=== PATIENT | female | born 1990 | race Two or more races ===

== ENCOUNTER 2019-09-02 16:14 | Day surgery (SDC) | payer SELFPAY ==
[2019-09-02] MEDS ORDERED: Sodium Chloride 0.9% 1,000 ML IV ONE (16:19)
--- NOTE | 2019-09-02 16:40 | EDM.PDOC ---
ED HPI GENERAL MEDICAL PROBLEM - General Chief Complaint: Abdominal Pain Stated Complaint: ABDOMINAL PAIN Time Seen by Provider: 09/02/19 16:17 Source of Information: Reports: Patient History Limitations: Reports: No Limitations - History of Present Illness INITIAL COMMENTS - FREE TEXT/NARRATIVE: HISTORY AND PHYSICAL: History of present illness: Patient is a 29-year-old female who presents to the emergency room with complaints of right lower quadrant pain for 2 days. Initially she thought she was constipated but was able to have a bowel movement last night and the pain continued. Does have some associated nausea and vomiting. Patient denies any fever, chills, headache, change in vision, syncope or near syncope. Denies any chest pain, back pain, shortness of breath or cough. Denies any vaginal discharge/bleeding, concern of or dysuria. Had tubal ligation in [place] 8 years ago. LMP 07/14/2019. Has not noted any blood in urine or stool. Patient has been eating and drinking appropriately. Review of systems: As per history of present illness and below otherwise all systems reviewed and negative. Past medical history: As per history of present illness and as reviewed below otherwise noncontributory. Surgical history: As per history of present illness and as reviewed below otherwise noncontributory. Social history: See social history for further information Family history: As per history of present illness and as reviewed below otherwise noncontributory. Physical exam: General: Well-developed and well-nourished 29-year-old female. Alert and oriented. Nontoxic-appearing and in no acute distress. HEENT: Atraumatic, normocephalic, pupils equal and reactive bilaterally, negative for conjunctival pallor or scleral icterus, mucous membranes moist, TMs normal bilaterally, throat clear, neck supple, nontender, trachea midline. No drooling or trismus noted. No meningeal signs. No hot potato voice noted. Lungs: Clear to auscultation, breath sounds equal bilaterally, chest nontender. Heart: S1S2, regular rate and rhythm without overt murmur Abdomen: Soft, nondistended, RLQ tenderness and rebound tenderness. Negative for masses or costovertebral tenderness. Skin: Intact, warm, dry. No lesions or rashes noted. Extremities: Atraumatic, moves all extremities per self without difficulty or deficits, negative for cords or calf pain. Neurovascular unremarkable. Neuro: Awake, alert, oriented. Cranial nerves II through XII unremarkable. Cerebellum unremarkable. Motor and sensory unremarkable throughout. Exam nonfocal. Notes: Patient is primarily Finnish-speaking, translation services was offered but she has a friend at bedside she would prefer to use. Patient's is positive; patient states that she has had a tubal ligat ion while in [place] 8 years ago. 4, para 4. Last menstrual period was approximately a month ago and "normal". CT scan was changed to a transvaginal and abdominal ultrasound to rule out ectopic and to assess for appendicitis. O positive. Patient does have low potassium and an early UTI noted on lab work. Ultrasound shows a 5.3 cm masslike process in the right adnexa with blood flow suspicious for an ectopic . Large volume of complex fluid in the pelvis. I did consult DANE Bae on-call, who is going to come down and see the patient. DRIVER RECRUITER is here evaluating patient, she will take to the OR. Patient was made aware of all findings and is agreeable with plan of care. Diagnostics: CBC, CMP, UA, urine , CT abdomen and pelvis Therapeutics: IV fluid, Zofran, morphine Impression: Ectopic Hypokalemia UTI Plan: To the OR with the DRIVER RECRUITER for ectopic Definitive disposition and diagnosis as appropriate pending reevaluation and review of above. Right Lower Abdomen Pain Score (Numeric/FACES): 8 - Related Data Allergies Allergy/AdvReac Type Severity Reaction Status Date / Time No Known Allergies Allergy Verified 09/02/19 16:37 Home Meds: Home Meds . [No Known Home Meds] 09/02/19 [History] ED ROS GENERAL - Review of Systems Review Of Systems: Comprehensive ROS is negative, except as noted in HPI. ED EXAM, GI/ABD - Physical Exam Exam: See Below (See dictation) Course - Vital Signs Last Recorded V/S: Last Vital Signs Temp 98.8 F 09/02/19 16:37 Pulse 79 09/02/19 20:00 Resp 16 09/02/19 20:00 BP 100/60 09/02/19 20:00 Pulse Ox 96 09/02/19 20:00 - Orders/Labs/Meds Orders: Active Orders 24 hr Category Date Time Status Admission Status [Patient Status] [ADT] Stat ADT 06/29/20 20:48 Active Notify Provider Consults [RC] ASDIRECTED Care 09/02/19 20:34 Active Verify Patient Consent Obtain [RC] ASDIRECTED Care 09/02/19 21:00 Ordered Consult to Physician [CONS] Stat Cons 09/02/19 20:33 Active CORONAVIRUS COVID-19 PCR PHL Stat Lab 09/02/19 20:34 Ordered CULTURE URINE [RM] Stat Lab 09/02/19 16:34 Received RED BLOOD CELLS LP [BBK] Stat Lab 09/02/19 20:59 Ordered Labs: Laboratory Tests 09/02/19 09/02/19 09/02/19 Range/Units 16:34 16:34 16:45 WBC (4.0-11.0) K/uL RBC (4.30-5.90) M/uL Hgb (12.0-16.0) g/dL Hct (36.0-46.0) % MCV (80.0-98.0) fL MCH (27.0-32.0) pg MCHC (31.0-37.0) g/dL RDW Std Deviation (28.0-62.0) fl RDW Coeff of [place] (11.0-15.0) % Plt Count (150-400) K/uL MPV (7.40-12.00) fL Neut % (Auto) (48.0-80.0) % Lymph % (Auto) (16.0-40.0) % [place] % (Auto) (0.0-15.0) % Eos % (Auto) (0.0-7.0) % Baso % (Auto) (0.0-1.5) % Neut # (Auto) (1.4-5.7) K/uL Lymph # (Auto) (0.6-2.4) K/uL [place] # (Auto) (0.0-0.8) K/uL Eos # (Auto) (0.0-0.7) K/uL Baso # (Auto) (0.0-0.1) K/uL Nucleated RBC % /100WBC Nucleated RBCs # K/uL Sodium (136-145) mmol/L Potassium (3.5-5.1) mmol/L Chloride (98-107) mmol/L Carbon Dioxide (21.0-32.0) mmol/L BUN (7.0-18.0) mg/dL Creatinine (0.6-1.0) mg/dL Est Cr Clr Drug Dosing mL/min Estimated GFR (MDRD) ml/min Glucose (74-106) mg/dL Calcium (8.5-10.1) mg/dL Total Bilirubin (0.2-1.0) mg/dL AST (15-37) IU/L ALT (14-63) IU/L Alkaline Phosphatase (46-116) U/L Total Protein (6.4-8.2) g/dL Albumin (3.4-5.0) g/dL Globulin (2.6-4.0) g/dL Albumin/Globulin Ratio (0.9-1.6) HCG, Quant 1410.0 mIU/mL Urine Color YELLOW Urine Appearance CLEAR Urine pH 7.5 (5.0-8.0) Ur Specific [place] 1.010 (1.001-1.035) Urine Protein NEGATIVE (NEGATIVE) mg/dL Urine Glucose (UA) NEGATIVE (NEGATIVE) mg/dL Urine Ketones NEGATIVE (NEGATIVE) mg/dL Urine Occult Blood NEGATIVE (NEGATIVE) Urine Nitrite NEGATIVE (NEGATIVE) Urine Bilirubin NEGATIVE (NEGATIVE) Urine Urobilinogen 0.2 (<2.0) EU/dL Ur Leukocyte Esterase SMALL H (NEGATIVE) Urine RBC 0-2 (0-2/HPF) Urine WBC 3-5 (0-5/HPF) Ur Epithelial Cells MODERATE (NONE-FEW) Urine Bacteria FEW (NEGATIVE) Urine HCG, Qual POSITIVE (NEGATIVE) Blood Type Antibody Screen 09/02/19 09/02/19 09/02/19 Range/Units 16:52 16:52 17:42 WBC 9.05 (4.0-11.0) K/uL RBC 3.68 L (4.30-5.90) M/uL Hgb 10.7 L (12.0-16.0) g/dL Hct 30.9 L (36.0-46.0) % MCV 84.0 (80.0-98.0) fL MCH 29.1 (27.0-32.0) pg MCHC 34.6 (31.0-37.0) g/dL RDW Std Deviation 40.4 (28.0-62.0) fl RDW Coeff of [place] 13 (11.0-15.0) % Plt Count 178 (150-400) K/uL MPV 11.60 (7.40-12.00) fL Neut % (Auto) 59.6 (48.0-80.0) % Lymph % (Auto) 33.0 (16.0-40.0) % [place] % (Auto) 6.9 (0.0-15.0) % Eos % (Auto) 0.4 (0.0-7.0) % Baso % (Auto) 0.1 (0.0-1.5) % Neut # (Auto) 5.4 (1.4-5.7) K/uL Lymph # (Auto) 3.0 H (0.6-2.4) K/uL [place] # (Auto) 0.6 (0.0-0.8) K/uL Eos # (Auto) 0.0 (0.0-0.7) K/uL Baso # (Auto) 0.0 (0.0-0.1) K/uL Nucleated RBC % 0.0 /100WBC Nucleated RBCs # 0 K/uL Sodium 139 (136-145) mmol/L Potassium 3.2 L (3.5-5.1) mmol/L Chloride 104 (98-107) mmol/L Carbon Dioxide 24.2 (21.0-32.0) mmol/L BUN 8 (7.0-18.0) mg/dL Creatinine 0.6 (0.6-1.0) mg/dL Est Cr Clr Drug Dosing 99.96 mL/min Estimated GFR (MDRD) > 60.0 ml/min Glucose 93 (74-106) mg/dL Calcium 8.4 L (8.5-10.1) mg/dL Total Bilirubin 1.7 H (0.2-1.0) mg/dL AST 15 (15-37) IU/L ALT 18 (14-63) IU/L Alkaline Phosphatase 74 (46-116) U/L Total Protein 7.3 (6.4-8.2) g/dL Albumin 3.9 (3.4-5.0) g/dL Globulin 3.4 (2.6-4.0) g/dL Albumin/Globulin Ratio 1.1 (0.9-1.6) HCG, Quant mIU/mL Urine Color Urine Appearance Urine pH (5.0-8.0) Ur Specific [place] (1.001-1.035) Urine Protein (NEGATIVE) mg/dL Urine Glucose (UA) (NEGATIVE) mg/dL Urine Ketones (NEGATIVE) mg/dL Urine Occult Blood (NEGATIVE) Urine Nitrite (NEGATIVE) Urine Bilirubin (NEGATIVE) Urine Urobilinogen (<2.0) EU/dL Ur Leukocyte Esterase (NEGATIVE) Urine RBC (0-2/HPF) Urine WBC (0-5/HPF) Ur Epithelial Cells (NONE-FEW) Urine Bacteria (NEGATIVE) Urine HCG, Qual (NEGATIVE) Blood Type O POSITIVE Antibody Screen NEGATIVE Meds: Medications Discontinued Medications Generic Name Dose Route Start Last Admin Trade Name Freq PRN Reason Stop Dose Admin Sodium Chloride 1,000 mls @ 999 mls/hr 09/02/19 16:19 09/02/19 17:21 Normal Saline IV 09/02/19 17:19 999 mls/hr STAT ONE Administration Morphine Sulfate 2 mg 09/02/19 16:41 09/02/19 17:22 Morphine IVPUSH 09/02/19 16:42 2 mg ONETIME ONE Administration Morphine Sulfate 2 mg 09/02/19 20:32 09/02/19 20:58 Morphine IVPUSH 09/02/19 20:33 2 mg ONETIME ONE Administration Ondansetron HCl 4 mg 09/02/19 16:41 09/02/19 17:22 Zofran IVPUSH 09/02/19 16:42 4 mg ONETIME ONE Administration Departure - Departure Time of Disposition: 21:03 Disposition: Still A Patient 30 Clinical Impression: Hypokalemia Ectopic Qualifiers: Location of ectopic : tubal Intrauterine status: unspecified Laterality: right Qualified Code(s): O00.101 - Right tubal without intrauterine Urinary tract infection Qualifiers: Urinary tract infection type: acute cystitis Hematuria presence: without hematuria Qualified Code(s): N30.00 - Acute cystitis without hematuria - Discharge Information Referrals: PCP,None [Primary Care Provider] - Forms: ED Department Discharge Sepsis Event Note (ED) - Focused Exam Vital Signs: Vital Signs Temp Pulse Resp BP Pulse Ox 09/02/19 20:00 79 16 100/60 96 09/02/19 19:24 79 16 99/63 98 09/02/19 16:37 98.8 F 72 15 100/54 L 97 - My Orders Last 24 Hours: My Active Orders 09/02/19 16:34 CULTURE URINE [RM] Stat 09/02/19 20:33 Consult to Physician [CONS] Stat 09/02/19 20:34 Notify Provider Consults [RC] ASDIRECTED CORONAVIRUS COVID-19 PCR PHL Stat 09/02/19 20:48 Admission Status [Patient Status] [ADT] Stat 09/02/19 20:59 RED BLOOD CELLS LP [BBK] Stat 09/02/19 21:00 Verify Patient Consent Obtain [RC] ASDIRECTED - Assessment/Plan Last 24 Hours: My Active Orders 09/02/19 16:34 CULTURE URINE [RM] Stat 09/02/19 20:33 Consult to Physician [CONS] Stat 09/02/19 20:34 Notify Provider Consults [RC] ASDIRECTED CORONAVIRUS COVID-19 PCR PHL Stat 09/02/19 20:48 Admission Status [Patient Status] [ADT] Stat 09/02/19 20:59 RED BLOOD CELLS LP [BBK] Stat 09/02/19 21:00 Verify Patient Consent Obtain [RC] ASDIRECTED
[2019-09-02] MEDS ORDERED: Morphine 2 MG/ML Syringe IVPUSH ONE ×2 (16:41→20:32)
[2019-09-02] MEDS ORDERED: Ondansetron 4 MG/2 ML SDV IVPUSH ONE (16:41)
[2019-09-02 17:26] LABS: BLOOD UREA NITROGEN,BUN 8 mg/dL (7.0-18.0); CARBON DIOXIDE,CO2 24.2 mmol/L (21.0-32.0); CHLORIDE,CL 104 mmol/L (98-107); GLUCOSE RANDOM 93 mg/dL (74-106); POTASSIUM,K 3.2 mmol/L (3.5-5.1); SODIUM,NA 139 mmol/L (136-145)
--- NOTE | 2019-09-02 20:08 | US ---
HISTORY: Right-sided abdominal pain. Positive test. TECHNIQUE: Ultrasound of the right upper quadrant. COMPARISON: None. FINDINGS: Liver has normal echogenicity. No liver lesions. No intrahepatic bile duct dilation. No cholelithiasis, gallbladder wall thickening, or pericholecystic fluid. Common bile duct measures 5 mm in caliber, within normal limits. Visualized portion the pancreas is unremarkable. Right kidney measures 10.6 cm long axis. Normal renal parenchymal thickness and echogenicity. No renal mass. Mild pyelocaliectasis. No left hydronephrosis. Visualized portion of the IVC is unremarkable. Proximal aorta measures 1.7 cm AP dimension. Mid aorta measures 1.2 cm AP dimension. Distal aorta measures 1.1 cm AP dimension. Trace perihepatic fluid. IMPRESSION: 1. Mild right pyelocaliectasis, possibly physiologic due to . No left pyelocaliectasis. 2. Trace perihepatic fluid. 3. No cholelithiasis or bile duct dilation. Dictated by Henrry Medley MD @ Sep 02 2019 8:02PM Signed by Dr. Henrry Medley @ Sep 02 2019 8:06PM
--- NOTE | 2019-09-02 20:18 | US ---
HISTORY: Positive test with history of tubal ligation. TECHNIQUE: Ultrasound of the pelvis using transabdominal and transvaginal techniques. Color and spectral Doppler evaluation of the ovaries. COMPARISON: None. FINDINGS: Uterus measures 10.8 x 4.6 x 6.4 cm. No mature echo complex thickness is 11 mm. No uterine mass. Right ovary measures 3.8 x 2.4 x 4 cm. Normal appearance of the right ovary. Blood flow present in the right ovary with arterial spectral Doppler waveform. Left ovary measures 5.4 x 3.7 x 3.8 cm. 3.7 cm cyst in the left ovary. Blood flow present in the left ovary with arterial and venous spectral Doppler waveforms. 4.1 x 3.5 x 5.3 cm heterogeneous echogenic masslike process in the right adnexa with internal Doppler signal. Large volume of complex fluid in the pelvis. IMPRESSION: 1. 5.3 cm heterogeneous masslike process in the right adnexa with internal blood flow suspicious for ectopic . Large volume of complex fluid in the pelvis. Recommend gynecology consultation. 2. No intrauterine gestational sac. --- Called to Ngoc Price NP on 09/02/19 at 2015 hours. Dictated by Henrry Medley MD @ Sep 02 2019 8:07PM Signed by Dr. Henrry Medley @ Sep 02 2019 8:17PM
[2019-09-02] MEDS ORDERED: Sodium Chloride 0.9% 10 ML Syringe FLUSH PRN (21:09)
[2019-09-02] MEDS ORDERED: Sodium Chloride 0.9% 2.5 ML Syringe FLUSH PRN (21:09)
[2019-09-02] MEDS ORDERED: Sodium Chloride 0.9% 10 ML SDV IV PRN (21:09)
--- NOTE | 2019-09-02 21:27 | PCM.HP.2 ---
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 present to the ER complaining of abdominal pain for 5 days , pain became progressively worse in the past 24hrs . she complains also of constipation she denies vomiting , SOB , denies any relieving or alleviating factors. BHCG done: 1410 Pelvic USS : Normal uterus , - no IUP , Right adnexa with 4.1 X 3 X 5cm complex mass with increased doppler flow. Large volume of complx fluid in pelvis PMH: Nil ?? hx of stroke , no deficits noted PSH: BTL FSH: denies smoking or drinking , currently unemployed Allergies: NIl Exam: General: appears pale and lethargic CVS: S1 s2 no murmurs Chest: CTA BL Abdomen: soft diffuse tenderness on superficial and deep palpation Pelvic: willl defer to OR VSS: 90 - 100/50 - 60 , HR: 70s A/P 29yo P4 with suspected ectopic ( slow leaking or ruptured) , hemodynamically stable , Anemia Plan Admit Patient consented for Diagnostic laparoscopy with removal of ectopic ( informed her that ectopic may be in the remnant of right tube and i will need to remove entire tube due to this. she was informed of the risk of infection , bleeding and damage to surrounding structures. Possible ex- lap. I gave her the opportunity to ask questions. she has a khmer speaking friend in the room. I also called the automotive parts [place] [id number] [facility] OR informed Anaesthesia called in Right Lower Abdomen Pain Score (Numeric/FACES): 8 - Related Data Allergies/Adverse Reactions: Allergies Allergy/AdvReac Type Severity Reaction Status Date / Time No Known Allergies Allergy Verified 09/02/19 16:37 Home Medications: Home Meds . 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: , Other (See Below) Other OB/BYN History: Hysterectomy Musculoskeletal History: Reports: None Neurological History: Reports: None Psychiatric History: Reports: None Endocrine/Metabolic History: Reports: None Hematologic History: Reports: None Immunologic History: Reports: None Oncologic (Cancer) History: Reports: None Dermatologic History: Reports: None - Infectious Disease History Infectious Disease History: Reports: None - Past Surgical History Head Surgeries/Procedures: Reports: None HEENT Surgical History: Reports: None Cardiovascular Surgical History: Reports: None Endocrine Surgical History: Reports: None Neurological Surgical History: Reports: None Musculoskeletal Surgical History: Reports: None Social & Family History - Family History Family Medical History: Noncontributory - Tobacco Use Smoking Status *Q: Never Smoker Second Hand Smoke Exposure: No - Caffeine Use Caffeine Use: Reports: Coffee, Soda - Recreational Drug Use Recreational Drug Use: No H&P Review of Systems - Review of Systems: Review Of Systems: See Below Exam - Exam Exam: See Below - Vital Signs Vital Signs: Last Vital Signs Temp 37.1 C 09/02/19 16:37 Pulse 79 09/02/19 20:00 Resp 16 09/02/19 20:00 BP 100/60 09/02/19 20:00 Pulse Ox 96 09/02/19 20:00 Weight: 45.359 kg - Patient Data Lab Results Last 24 hrs: Laboratory Results - last 24 hr 09/02/19 09/02/19 09/02/19 Range/Units 16:34 16:34 16:45 WBC (4.0-11.0) K/uL RBC (4.30-5.90) M/uL Hgb (12.0-16.0) g/dL Hct (36.0-46.0) % MCV (80.0-98.0) fL MCH (27.0-32.0) pg MCHC (31.0-37.0) g/dL RDW Std Deviation (28.0-62.0) fl RDW Coeff of [place] (11.0-15.0) % Plt Count (150-400) K/uL MPV (7.40-12.00) fL Neut % (Auto) (48.0-80.0) % Lymph % (Auto) (16.0-40.0) % [place] % (Auto) (0.0-15.0) % Eos % (Auto) (0.0-7.0) % Baso % (Auto) (0.0-1.5) % Neut # (Auto) (1.4-5.7) K/uL Lymph # (Auto) (0.6-2.4) K/uL [place] # (Auto) (0.0-0.8) K/uL Eos # (Auto) (0.0-0.7) K/uL Baso # (Auto) (0.0-0.1) K/uL Nucleated RBC % /100WBC Nucleated RBCs # K/uL Sodium (136-145) mmol/L Potassium (3.5-5.1) mmol/L Chloride (98-107) mmol/L Carbon Dioxide (21.0-32.0) mmol/L BUN (7.0-18.0) mg/dL Creatinine (0.6-1.0) mg/dL Est Cr Clr Drug Dosing mL/min Estimated GFR (MDRD) ml/min Glucose (74-106) mg/dL Calcium (8.5-10.1) mg/dL Total Bilirubin (0.2-1.0) mg/dL AST (15-37) IU/L ALT (14-63) IU/L Alkaline Phosphatase (46-116) U/L Total Protein (6.4-8.2) g/dL Albumin (3.4-5.0) g/dL Globulin (2.6-4.0) g/dL Albumin/Globulin Ratio (0.9-1.6) HCG, Quant 1410.0 mIU/mL Urine Color YELLOW Urine Appearance CLEAR Urine pH 7.5 (5.0-8.0) Ur Specific [place] 1.010 (1.001-1.035) Urine Protein NEGATIVE (NEGATIVE) mg/dL Urine Glucose (UA) NEGATIVE (NEGATIVE) mg/dL Urine Ketones NEGATIVE (NEGATIVE) mg/dL Urine Occult Blood NEGATIVE (NEGATIVE) Urine Nitrite NEGATIVE (NEGATIVE) Urine Bilirubin NEGATIVE (NEGATIVE) Urine Urobilinogen 0.2 (<2.0) EU/dL Ur Leukocyte Esterase SMALL H (NEGATIVE) Urine RBC 0-2 (0-2/HPF) Urine WBC 3-5 (0-5/HPF) Ur Epithelial Cells MODERATE (NONE-FEW) Urine Bacteria FEW (NEGATIVE) Urine HCG, Qual POSITIVE (NEGATIVE) Blood Type Antibody Screen Crossmatch 09/02/19 09/02/19 09/02/19 Range/Units 16:52 16:52 17:42 WBC 9.05 (4.0-11.0) K/uL RBC 3.68 L (4.30-5.90) M/uL Hgb 10.7 L (12.0-16.0) g/dL Hct 30.9 L (36.0-46.0) % MCV 84.0 (80.0-98.0) fL MCH 29.1 (27.0-32.0) pg MCHC 34.6 (31.0-37.0) g/dL RDW Std Deviation 40.4 (28.0-62.0) fl RDW Coeff of [place] 13 (11.0-15.0) % Plt Count 178 (150-400) K/uL MPV 11.60 (7.40-12.00) fL Neut % (Auto) 59.6 (48.0-80.0) % Lymph % (Auto) 33.0 (16.0-40.0) % [place] % (Auto) 6.9 (0.0-15.0) % Eos % (Auto) 0.4 (0.0-7.0) % Baso % (Auto) 0.1 (0.0-1.5) % Neut # (Auto) 5.4 (1.4-5.7) K/uL Lymph # (Auto) 3.0 H (0.6-2.4) K/uL [place] # (Auto) 0.6 (0.0-0.8) K/uL Eos # (Auto) 0.0 (0.0-0.7) K/uL Baso # (Auto) 0.0 (0.0-0.1) K/uL Nucleated RBC % 0.0 /100WBC Nucleated RBCs # 0 K/uL Sodium 139 (136-145) mmol/L Potassium 3.2 L (3.5-5.1) mmol/L Chloride 104 (98-107) mmol/L Carbon Dioxide 24.2 (21.0-32.0) mmol/L BUN 8 (7.0-18.0) mg/dL Creatinine 0.6 (0.6-1.0) mg/dL Est Cr Clr Drug Dosing 99.96 mL/min Estimated GFR (MDRD) > 60.0 ml/min Glucose 93 (74-106) mg/dL Calcium 8.4 L (8.5-10.1) mg/dL Total Bilirubin 1.7 H (0.2-1.0) mg/dL AST 15 (15-37) IU/L ALT 18 (14-63) IU/L Alkaline Phosphatase 74 (46-116) U/L Total Protein 7.3 (6.4-8.2) g/dL Albumin 3.9 (3.4-5.0) g/dL Globulin 3.4 (2.6-4.0) g/dL Albumin/Globulin Ratio 1.1 (0.9-1.6) HCG, Quant mIU/mL Urine Color Urine Appearance Urine pH (5.0-8.0) Ur Specific [place] (1.001-1.035) Urine Protein (NEGATIVE) mg/dL Urine Glucose (UA) (NEGATIVE) mg/dL Urine Ketones (NEGATIVE) mg/dL Urine Occult Blood (NEGATIVE) Urine Nitrite (NEGATIVE) Urine Bilirubin (NEGATIVE) Urine Urobilinogen (<2.0) EU/dL Ur Leukocyte Esterase (NEGATIVE) Urine RBC (0-2/HPF) Urine WBC (0-5/HPF) Ur Epithelial Cells (NONE-FEW) Urine Bacteria (NEGATIVE) Urine HCG, Qual (NEGATIVE) Blood Type O POSITIVE Antibody Screen NEGATIVE Crossmatch See Detail Result Diagrams: 09/02/19 16:52 09/02/19 16:52 Sepsis Event Note - Evaluation Sepsis Screening Result: No Definite Risk - Focused Exam Vital Signs: Vital Signs Temp Pulse Resp BP Pulse Ox 09/02/19 20:00 79 16 100/60 96 09/02/19 19:24 79 16 99/63 98 09/02/19 16:37 37.1 C 72 15 100/54 L 97 Date Exam was Performed: 09/02/19 Time Exam was Performed: 21:14 *Q Meaningful Use (ADM) - VTE *Q VTE Criteria *Q: 6 - Problem List (1) Ectopic SNOMED Code(s): 89679105 ICD Code: O00.90 - UNSPECIFIED ECTOPIC WITHOUT INTRAUTERINE Status: Acute Current Visit: Yes Qualifiers: Location of ectopic : tubal Intrauterine status: unspecified Laterality: right Qualified Code(s): O00.101 - Right tubal without intrauterine Problem List Initiated/Reviewed/Updated: Yes Orders Last 24hrs: Active Orders 24 hr Category Date Time Status Admission Status [Patient Status] [ADT] Stat ADT 09/02/19 20:48 Active Patient Status [ADT] Routine ADT 09/02/19 21:09 Ordered Antiembolic Devices [RC] PER UNIT ROUTINE Care 09/02/19 21:10 Ordered Notify Provider Consults [RC] ASDIRECTED Care 09/02/19 20:34 Active Verify Patient Consent Obtain [RC] ASDIRECTED Care 09/02/19 21:00 Active Verify Patient Consent Obtain [RC] PER UNIT ROUTINE Care 09/02/19 21:09 Ordered Vital Signs [RC] PER UNIT ROUTINE Care 09/02/19 21:09 Ordered Consult to Physician [CONS] Stat Cons 09/02/19 20:33 Active CORONAVIRUS COVID-19 PCR PHL Stat Lab 09/02/19 20:34 Ordered CULTURE URINE [RM] Stat Lab 09/02/19 16:34 Received RED BLOOD CELLS LP [BBK] Stat Lab 09/02/19 17:42 Results TYPE AND SCREEN [BBK] Stat Lab 09/02/19 17:42 Results Sodium Chloride 0.9% [Normal Saline] Med 09/02/19 21:09 Ordered 10 ml IV ASDIRECTED PRN Sodium Chloride 0.9% [Saline Flush] Med 09/02/19 21:09 Ordered 10 ml FLUSH ASDIRECTED PRN Sodium Chloride 0.9% [Saline Flush] Med 09/02/19 21:09 Ordered 2.5 ml FLUSH ASDIRECTED PRN Peripheral IV Insertion Adult [OM.PC] Urgent Oth 09/02/19 21:09 Ordered Sequential Compression Device [OM.PC] Per Unit Routine Oth 09/02/19 21:09 Ordered Medication Orders Sodium Chloride (Saline Flush) 10 ml FLUSH ASDIRECTED PRN PRN Reason: Keep Vein Open Sodium Chloride (Saline Flush) 2.5 ml FLUSH ASDIRECTED PRN PRN Reason: Keep Vein Open Sodium Chloride (Normal Saline) 10 ml IV ASDIRECTED PRN PRN Reason: IV Use Assessment/Plan Comment:: See HPI - Mortality Measure Prognosis:: Good
[2019-09-02] MEDS ORDERED: Bupivacaine 0.5% 30 ML SDV ONE (21:56)
[2019-09-02] MEDS ORDERED: Propofol 200 MG/20 ML SDV ONE (22:08)
[2019-09-02] MEDS ORDERED: fentaNYL 100 MCG/2 ML SDV ONE (22:09)
[2019-09-02] MEDS ORDERED: Midazolam 1 MG/ML 2 ML SDV ONE (22:09)
[2019-09-02] MEDS ORDERED: Lidocaine 2% 5 ML SDV ONE (22:10)
[2019-09-02] MEDS ORDERED: Rocuronium Bromide 50 MG/5 ML Syringe ONE (22:10)
[2019-09-02] MEDS ORDERED: Succinylcholine/Sod PF 100 MG/5 ML SYRINGE IV ONE (22:10)
[2019-09-02] MEDS ORDERED: Sugammadex Sodium 200 MG/2 ML VIAL ONE (22:13)
[2019-09-02] MEDS ORDERED: Sodium Chloride 0.9% 20 ML ONE (22:43)
--- NOTE | 2019-09-02 22:58 | PCM.PREANE ---
Preanesthetic Assessment - Procedure Proposed Procedure: Diagnostic laparoscopy, ectopic - Anesthesia/Transfusion/Family Hx Anesthesia History: Prior Anesthesia Without Reaction Family History of Anesthesia Reaction: No Transfusion History: No Prior Transfusion(s) - Review of Systems General: No Symptoms Pulmonary: No Symptoms Cardiovascular: No Symptoms Gastrointestinal: No Symptoms Neurological: No Symptoms Other: Reports: None - Physical Assessment NPO Status Date: 09/01/19 NPO Status Time: 14:00 Vital Signs: Last Vital Signs Temp 37.1 C 09/02/19 16:37 Pulse 79 09/02/19 20:00 Resp 16 09/02/19 20:00 BP 100/60 09/02/19 20:00 Pulse Ox 96 09/02/19 20:00 Height: 5 ft 1 in Weight: 45.359 kg ASA Class: 1E Mental Status: Alert & Oriented x3 Airway Class: Mallampati = 1 Dentition: Reports: Normal Dentition Thyro-Mental Finger Breadths: 3 ROM/Head Extension: Full Lungs: Clear to Auscultation, Normal Respiratory Effort Cardiovascular: Regular Rhythm, Tachycardia - Lab Values: Laboratory Last Values WBC 9.05 K/uL (4.0-11.0) 09/02/19 16:52 RBC 3.68 M/uL (4.30-5.90) L 09/02/19 16:52 Hgb 10.7 g/dL (12.0-16.0) L 09/02/19 16:52 Hct 30.9 % (36.0-46.0) L 09/02/19 16:52 MCV 84.0 fL (80.0-98.0) 09/02/19 16:52 MCH 29.1 pg (27.0-32.0) 09/02/19 16:52 MCHC 34.6 g/dL (31.0-37.0) 09/02/19 16:52 RDW Std Deviation 40.4 fl (28.0-62.0) 09/02/19 16:52 RDW Coeff of [place] 13 % (11.0-15.0) 09/02/19 16:52 Plt Count 178 K/uL (150-400) 09/02/19 16:52 MPV 11.60 fL (7.40-12.00) 09/02/19 16:52 Neut % (Auto) 59.6 % (48.0-80.0) 09/02/19 16:52 Lymph % (Auto) 33.0 % (16.0-40.0) 09/02/19 16:52 [place] % (Auto) 6.9 % (0.0-15.0) 09/02/19 16:52 Eos % (Auto) 0.4 % (0.0-7.0) 09/02/19 16:52 Baso % (Auto) 0.1 % (0.0-1.5) 09/02/19 16:52 Neut # (Auto) 5.4 K/uL (1.4-5.7) 09/02/19 16:52 Lymph # (Auto) 3.0 K/uL (0.6-2.4) H 09/02/19 16:52 [place] # (Auto) 0.6 K/uL (0.0-0.8) 09/02/19 16:52 Eos # (Auto) 0.0 K/uL (0.0-0.7) 09/02/19 16:52 Baso # (Auto) 0.0 K/uL (0.0-0.1) 09/02/19 16:52 Nucleated RBC % 0.0 /100WBC 09/02/19 16:52 Nucleated RBCs # 0 K/uL 09/02/19 16:52 Sodium 139 mmol/L (136-145) 09/02/19 16:52 Potassium 3.2 mmol/L (3.5-5.1) L 09/02/19 16:52 Chloride 104 mmol/L (98-107) 09/02/19 16:52 Carbon Dioxide 24.2 mmol/L (21.0-32.0) 09/02/19 16:52 BUN 8 mg/dL (7.0-18.0) 09/02/19 16:52 Creatinine 0.6 mg/dL (0.6-1.0) 09/02/19 16:52 Est Cr Clr Drug Dosing 99.96 mL/min 09/02/19 16:52 Estimated GFR (MDRD) > 60.0 ml/min 09/02/19 16:52 Glucose 93 mg/dL (74-106) 09/02/19 16:52 Calcium 8.4 mg/dL (8.5-10.1) L 09/02/19 16:52 Total Bilirubin 1.7 mg/dL (0.2-1.0) H 09/02/19 16:52 AST 15 IU/L (15-37) 09/02/19 16:52 ALT 18 IU/L (14-63) 09/02/19 16:52 Alkaline Phosphatase 74 U/L (46-116) 09/02/19 16:52 Total Protein 7.3 g/dL (6.4-8.2) 09/02/19 16:52 Albumin 3.9 g/dL (3.4-5.0) 09/02/19 16:52 Globulin 3.4 g/dL (2.6-4.0) 09/02/19 16:52 Albumin/Globulin Ratio 1.1 (0.9-1.6) 09/02/19 16:52 HCG, Quant 1410.0 mIU/mL 09/02/19 16:45 Urine Color YELLOW 09/02/19 16:34 Urine Appearance CLEAR 09/02/19 16:34 Urine pH 7.5 (5.0-8.0) 09/02/19 16:34 Ur Specific [place] 1.010 (1.001-1.035) 09/02/19 16:34 Urine Protein NEGATIVE mg/dL (NEGATIVE) 09/02/19 16:34 Urine Glucose (UA) NEGATIVE mg/dL (NEGATIVE) 09/02/19 16:34 Urine Ketones NEGATIVE mg/dL (NEGATIVE) 09/02/19 16:34 Urine Occult Blood NEGATIVE (NEGATIVE) 09/02/19 16:34 Urine Nitrite NEGATIVE (NEGATIVE) 09/02/19 16:34 Urine Bilirubin NEGATIVE (NEGATIVE) 09/02/19 16:34 Urine Urobilinogen 0.2 EU/dL (<2.0) 09/02/19 16:34 Ur Leukocyte Esterase SMALL (NEGATIVE) H 09/02/19 16:34 Urine RBC 0-2 (0-2/HPF) 09/02/19 16:34 Urine WBC 3-5 (0-5/HPF) 09/02/19 16:34 Ur Epithelial Cells MODERATE (NONE-FEW) 09/02/19 16:34 Urine Bacteria FEW (NEGATIVE) 09/02/19 16:34 Urine HCG, Qual POSITIVE (NEGATIVE) 09/02/19 16:34 SARS-CoV-2 RNA (RT-PCR) NEGATIVE (NEGATIVE) 09/02/19 21:25 Blood Type O POSITIVE 09/02/19 17:42 Antibody Screen NEGATIVE 09/02/19 17:42 Crossmatch See Detail 09/02/19 17:42 - Allergies Allergies/Adverse Reactions: Allergies Allergy/AdvReac Type Severity Reaction Status Date / Time No Known Allergies Allergy Verified 09/02/19 16:37 - Acknowledgements Anesthesia Type Planned: General Anesthesia Pt an Appropriate Candidate for the Planned Anesthesia: Yes Alternatives and Risks of Anesthesia Discussed w Pt/Guardian: Yes Pt/Guardian Understands and Agrees with Anesthesia Plan: Yes PreAnesthesia Questionnaire HEENT History: Reports: None Cardiovascular History: Reports: None Respiratory History: Reports: None Gastrointestinal History: Reports: None Genitourinary History: Reports: None AEMT History: Reports: , Other (See Below) Other OB/BYN History: Hysterectomy Musculoskeletal History: Reports: None Neurological History: Reports: None Psychiatric History: Reports: None Endocrine/Metabolic History: Reports: None Hematologic History: Reports: None Immunologic History: Reports: None Oncologic (Cancer) History: Reports: None Dermatologic History: Reports: None - Infectious Disease History Infectious Disease History: Reports: None - Past Surgical History Head Surgeries/Procedures: Reports: None HEENT Surgical History: Reports: None Cardiovascular Surgical History: Reports: None Female Surgical History: Reports: Tubal Ligation Endocrine Surgical History: Reports: None Neurological Surgical History: Reports: None Musculoskeletal Surgical History: Reports: None - SUBSTANCE USE Smoking Status *Q: Never Smoker Second Hand Smoke Exposure: No Recreational Drug Use History: No - HOME MEDS Home Medications: Home Meds Acetaminophen/oxyCODONE [Percocet 325-5 MG] 1 - 2 each PO Q6HR 3 Days #10 tab 09/02/19 [Rx] - CURRENT (IN HOUSE) MEDS Current Meds: Current Medications Sodium Chloride (Saline Flush) 10 ml FLUSH ASDIRECTED PRN PRN Reason: Keep Vein Open Sodium Chloride (Saline Flush) 2.5 ml FLUSH ASDIRECTED PRN PRN Reason: Keep Vein Open Sodium Chloride (Normal Saline) 10 ml IV ASDIRECTED PRN PRN Reason: IV Use Discontinued Medications Bupivacaine HCl (Marcaine 0.5%) Confirm Administered Dose 30 ml .ROUTE .STK-MED ONE Stop: 09/02/19 21:57 Fentanyl (Sublimaze) Confirm Administered Dose 100 mcg .ROUTE .STK-MED ONE Stop: 09/02/19 22:10 Sodium Chloride (Normal Saline) 1,000 mls @ 999 mls/hr IV STAT ONE Stop: 09/02/19 17:19 Last Admin: 09/02/19 17:21 Dose: 999 mls/hr Documented by: Acetaminophen (Ofirmev) Confirm Administered Dose 100 mls @ as directed .ROUTE .STK-MED ONE Stop: 09/02/19 22:14 Sodium Chloride (Normal Saline) Confirm Administered Dose 20 mls @ as directed .ROUTE .STK-MED ONE Stop: 09/02/19 22:44 Lidocaine (Xylocaine-Mpf 2%) Confirm Administered Dose 5 ml .ROUTE .STK-MED ONE Stop: 09/02/19 22:11 Midazolam HCl (Versed 1 Mg/Ml) Confirm Administered Dose 2 mg .ROUTE .STK-MED ONE Stop: 09/02/19 22:10 Morphine Sulfate (Morphine) 2 mg IVPUSH ONETIME ONE Stop: 09/02/19 16:42 Last Admin: 09/02/19 17:22 Dose: 2 mg Documented by: Morphine Sulfate (Morphine) 2 mg IVPUSH ONETIME ONE Stop: 09/02/19 20:33 Last Admin: 09/02/19 20:58 Dose: 2 mg Documented by: Ondansetron HCl (Zofran) 4 mg IVPUSH ONETIME ONE Stop: 09/02/19 16:42 Last Admin: 09/02/19 17:22 Dose: 4 mg Documented by: Propofol (Diprivan 20 Ml) Confirm Administered Dose 200 mg .ROUTE .STK-MED ONE Stop: 09/02/19 22:09 Rocuronium [place] (Rocuronium [place]) Confirm Administered Dose 50 mg .ROUTE .STK-MED ONE Stop: 09/02/19 22:11 Sugammadex Sodium ([place]) Confirm Administered Dose 200 mg .ROUTE .STK-MED ONE Stop: 09/02/19 22:14
[2019-09-02] MEDS ORDERED: fentaNYL 100 MCG/2 ML SDV IVPUSH PRN (23:01)
[2019-09-02] MEDS ORDERED: Naloxone 0.4 MG/ML Syringe IVPUSH PRN (23:01)
[2019-09-02] MEDS ORDERED: Atropine 0.1 MG/ML 10 ML Syringe IVPUSH PRN ×2 (23:01)
[2019-09-02] MEDS ORDERED: Albuterol 0.083% 2.5 MG/3 ML Neb Soln NEB PRN (23:01)
[2019-09-02] MEDS ORDERED: 50% Dextrose in Water 50 ML Syringe IVPUSH PRN (23:01)
[2019-09-02] MEDS ORDERED: EPINEPHrine 1:10,000 1 MG/10 ML Syringe IVPUSH PRN (23:01)
[2019-09-02] MEDS ORDERED: ePHEDrine 50 MG/ML SDV ONE (23:07)
[2019-09-02] MEDS ORDERED: Methylene Blue 50 MG/10 ML Ampule ONE (23:37)
[2019-09-03] MEDS ORDERED: Dexamethasone 4 MG/ML 5 ML MDV ONE (00:44)
[2019-09-03] MEDS ORDERED: Ondansetron 4 MG/2 ML SDV ONE (00:44)
[2019-09-03] MEDS ORDERED: fentaNYL 100 MCG/2 ML SDV ONE (00:45)
--- NOTE | 2019-09-03 01:13 | PCM.OPNOTE ---
- General Post-Op/Procedure Note Date of Surgery/Procedure: 09/03/19 Operative Procedure(s): Laparoscopic Right salphingectomy. Removal of ectopic and hemoperitoneum. Chromotubation Findings: Normal sized anteverted uterus Left tube with no evidence of tubal ligation , minimal spillage noted Normal left ovary Right tube with clots and ectopic noted aborting from the fimbriae end. no slippage noted from right tube Normal right ovary Pre Op Diagnosis: Right ectopic ruptured Post-Op Diagnosis: Right tubal Anesthesia Technique: Epidural Primary Surgeon: Zo Posada Secondary Surgeon: Mark SOTO Anesthesia Provider: Diya Carney Pathology: Right tube and ectopic Fluid Replacement, Intraop: 2,000 EBL in mLs: 100 Complications: None Condition: Good
[2019-09-03] MEDS ORDERED: Promethazine 25 MG/ML SDV IM PRN (01:17)
[2019-09-03] MEDS ORDERED: Ketorolac 30 MG/ML SDV IVPUSH PRN (01:17)
[2019-09-03] MEDS ORDERED: Morphine 4 MG/ML Syringe IVPUSH PRN (01:17)
[2019-09-03] MEDS ORDERED: Acetaminophen/oxyCODONE 325-5 MG Tab PO PRN ×2 (01:17)
[2019-09-03] MEDS ORDERED: Ondansetron 4 MG/2 ML SDV IVPUSH PRN (01:17)
[2019-09-03] MEDS ORDERED: Ketorolac 30 MG/ML SDV IVPUSH ONE (01:17)
--- NOTE | 2019-09-03 02:14 | PCM.POSTAN ---
POST ANESTHESIA ASSESSMENT - MENTAL STATUS Mental Status: Alert, Oriented - VITAL SIGNS Vital Signs: Last Vital Signs Temp 36 C L 09/03/19 01:15 Pulse 92 09/03/19 02:05 Resp 16 09/03/19 02:05 BP 109/69 09/03/19 02:05 Pulse Ox 98 09/03/19 02:05 - RESPIRATORY Respiratory Status: Respiratory Rate WNL, Airway Patent, O2 Saturation Stable - CARDIOVASCULAR CV Status: Pulse Rate WNL, Blood Pressure Stable - GASTROINTESTINAL GI Status: No Symptoms - POST OP HYDRATION Hydration Status: Adequate & Stable
[2019-09-03] MEDS ORDERED: ceFAZolin 2 GM in Premix Bag 1 BAG IV ONE (03:29)
[2019-09-03] MEDS ORDERED: Metoclopramide 10 MG/2 ML SDV IVPUSH ONE (03:31)
[2019-09-03] MEDS ORDERED: Dextrose 5%-Lactated Ringers 1,000 ML IV SCH (03:45)
--- NOTE | 2019-09-03 07:27 | PCM48HPAN ---
Post Anesthesia Note - EVALUATION WITHIN 48HRS OF ANESTHETIC Vital Signs in Normal Range: Yes Patient Participated in Evaluation: Yes Respiratory Function Stable: Yes Airway Patent: Yes Cardiovascular Function Stable: Yes Hydration Status Stable: Yes Pain Control Satisfactory: Yes Nausea and Vomiting Control Satisfactory: Yes Mental Status Recovered: Yes Vital Signs: Last Vital Signs Temp 36.8 C 09/03/19 05:45 Pulse 80 09/03/19 05:45 Resp 16 09/03/19 05:45 BP 108/67 09/03/19 05:45 Pulse Ox 96 09/03/19 05:45
--- NOTE | 2019-09-04 10:44 | OR ---
SURGEON: JORGE Johnson MS DATE OF PROCEDURE: 09/03/2019 PREOPERATIVE DIAGNOSES: A 29-year-old, G5, P 4-0-0-4, at about 6 weeks' gestation with an ectopic , history of bilateral tubal ligation. POSTOPERATIVE DIAGNOSES: Right tubal , failed tubal ligation. PROCEDURES: Right salpingectomy, removal of right ectopic , drainage of hemoperitoneum, chromotubation. ESTIMATED BLOOD LOSS: 100 mL. Hemoperitoneum evacuated was about 100. POLLUTION CONTROL ENGINEER: Diya Carney, ANAESTHESIA General . OPENER VERIFIER PACKER CUSTOMS: Medical student, Mark Johnson. NOTES AND FINDINGS: Examination under anesthesia showed a normal-sized anteverted uterus. Laparoscopy showed normal uterus and no evidence of tubal ligation noted on the right and the left tube. However, some of the fimbriae did not seem very mobile on both tubes. On the right side, there was noted to be a clotted blood around the ovary, which was lysed, and also ectopic at the fimbriae end, which was removed. The chromotubation was then done and noted that there was minimal spillage on the left, there was no spillage on the right. Normal ovaries were present. BRIEF HISTORY: This patient is a 29-year-old, G5, P4, about 6 weeks' , who came in complaining of severe abdominal pain for 5 days, and pain got worse within 24 hours. The patient had a beta-hCG done, which was positive, with a level of about a 1500. She also had an ultrasound done that showed right adnexal mass with blood flow within it. As a result of this, OB was consulted and then diagnosis was made of an ectopic as a result of a failed tubal ligation. The patient was explained the risks, benefits, and alternatives. During the conversation, the patient expressed desire to have tubal reanastomosis done. She was informed of the risks of infection, bleeding, damage to surrounding structures, also removal of the affected tube. The patient was given the opportunity to ask questions and all questions were answered. The patient was spoken to via automatic line set up mechanic number [id number]. After the patient gave consent to proceed with the procedure, the patient was taken to the operating room. DESCRIPTION OF PROCEDURE: The patient was taken to the operating room where she was prepared and draped in the dorsal lithotomy position with the Kaushik stirrups. The uterine manipulator was placed in after exposure of the cervix to help manipulate the uterus. Then, attention was placed to the abdomen. On the abdomen, a 5 mm subumbilical incision was made after injection of 0.25% Marcaine. The abdomen was entered in via direct entry and it was confirmed by visualization and also a low intraabdominal CO2 pressure and that was obtained to 15 mmHg. Trendelenburg position was then obtained at this point. Then, the right lower and left lower quadrant ports were placed after a 5 mm incision was made 2 fingerbreadths medial and superior to the anterior and superior iliac spine. The above-noted finding was noted. using the grasper on the right side, the ectopic was teased from the fimbriae end. Hemostasis was noted at this point. An attempt was made to detach the fimbriae from the ovary. At this point, there was minimal bleeding that was noted and the chromotubation was done as the patient desired preservation of fertility despite her hx of BTL . With chromotubation, there was minimal spillage noted on the left. On the right, there was no spillage. At this point, and because of some bleeding around the fimbriae, decision was made to go ahead with a right salpingectomy. The fimbriae end was grasped with a grasper and with the LigaSure device. It was then sequentially cut and coagulated all the way to the cornua and hemostasis was noted at the site. Then, the umbilical port was replaced with a 10 mm port and the bag was placed in and the ectopic and also the tube was placed into the bag and it was then retrieved out. So after retrieval of the port, the abdomen was then inspected for hemostasis. Hemostasis was noted. The ports were then removed and the gas was emptied from the abdomen. The incisions were closed with 4-0 Monocryl. The fascia in umbilicus was closed with a 2-0 Vicryl on a UR6. Then, the skin was closed with a 4-0 Monocryl. The uterine manipulator was removed. The patient tolerated the procedure well and all instrument and pad counts were correct x2. SYED SOLORZANO /[id number] ELVIRA
== END 2019-09-03 06:00 | disposition home or self-care (01) ==
LOC: MW.ED 16:14 → MW.SDS 20:48 → MW.MS 20:48 → MW.SDS 20:59
PROVIDERS: ATTEND Obstetrics & Gynecology
DX: O00.101 Right tubal pregnancy without intrauterine pregnancy (principal); E87.6 Hypokalemia; Z11.59 Encounter for screening for other viral diseases; Z98.51 Tubal ligation status
CPT/HCPCS: 36415; 58350; 59151; 76705; 76817; 80053; 81001; 81025; 84702; 85025; 86850; 86900; 86901; 86920; 86921; 86922; 87086; 87088; 87186; 87635; 88305; 96361; 96374; 96375; 96376; 99285; A9270; J0131; J0330; J0690; J1100; J1885; J2001; J2250; J2270; J2405; J2704; J2765; J3010; J3490; J7030; U0002

== ENCOUNTER 2019-09-03 07:00 | Emergency (ER) | payer SELFPAY ==
[2019-09-03] MEDS ORDERED: Sodium Chloride 0.9% 2.5 ML Syringe FLUSH PRN (07:06)
[2019-09-03] MEDS ORDERED: Sodium Chloride 0.9% 10 ML Syringe FLUSH PRN (07:06)
--- NOTE | 2019-09-03 07:07 | EDM.PDOC ---
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 This patient is a 29-year-old female who is postop day #0 status post right salpingectomy due to ruptured ectopic (surgeon Dr. Posada). She was discharged from our [facility] at approximately 5:00 this morning. . She was also noted to be hypokalemic and there was some concern for a UTI. This morning, she presents about 2 hours after being discharged from same-day surgery due to bleeding from her umbilical surgery site. She had a dressing and a Tegaderm placed and has soaked through these things and is soaking blood onto her close. She she also complains of pain to the same area. Denies any other hemorrhage or pain. abdomen Pain Score (Numeric/FACES): 6 - Related Data Allergies Allergy/AdvReac Type Severity Reaction Status Date / Time No Known Allergies Allergy Verified 09/03/19 07:17 Home Meds: Home Meds Acetaminophen/oxyCODONE [Percocet 325-5 MG] 1 - 2 each PO Q6HR 3 Days #10 tab 09/02/19 [Rx] Ondansetron [Zofran ODT] 4 mg PO Q6H PRN 7 Days #20 tab.dis 09/03/19 [Rx] Past Medical History HEENT History: Reports: None Cardiovascular History: Reports: None Respiratory History: Reports: None Gastrointestinal History: Reports: None Genitourinary History: Reports: None LEAVE MANAGER History: Reports: , Other (See Below) Other LEAVE MANAGER History: Hysterectomy Musculoskeletal History: Reports: None Neurological History: Reports: None Psychiatric History: Reports: None Endocrine/Metabolic History: Reports: None Hematologic History: Reports: None Immunologic History: Reports: None Oncologic (Cancer) History: Reports: None Dermatologic History: Reports: None - Infectious Disease History Infectious Disease History: Reports: None - Past Surgical History Head Surgeries/Procedures: Reports: None HEENT Surgical History: Reports: None Cardiovascular Surgical History: Reports: None Female Surgical History: Reports: Tubal Ligation Endocrine Surgical History: Reports: None Neurological Surgical History: Reports: None Musculoskeletal Surgical History: Reports: None Social & Family History - Family History Family Medical History: Noncontributory - Caffeine Use Caffeine Use: Reports: Coffee, Soda ED ROS GENERAL - Review of Systems Review Of Systems: See Below Respiratory: Denies: Shortness of Breath Cardiovascular: Denies: Chest Pain GI/Abdominal: Reports: Abdominal Pain. Denies: Nausea, Vomiting Musculoskeletal: Denies: Back Pain Skin: Denies: Rash Neurological: Denies: Headache Psychiatric: Reports: No Symptoms Hematologic/Lymphatic: Reports: Other (Bleeding from surgery site) ED EXAM - Physical Exam Exam: See Below Text/Narrative:: Vital signs reviewed. Nursing notes reviewed. Constitutional: Awake, alert, non-distressed. Head: Normocephalic, atraumatic. Eyes: EOMI, conjunctiva normal, no discharge, no scleral icterus. Ears, Nose, Throat: External ears and nose normal, moist oral mucosa. Cardiovascular: 2+ radial pulse, capillary refill less than 2 seconds. Pulmonary: normal work of breathing, no accessory muscle use. Abdomen/GI: Soft, nontender, nondistended, no guarding or rigidity, no masses. Tegaderm in place covering 2 x 2 dressings over an umbilical surgical site, soaked with blood. I took down the dressings, Steri-Strips appear intact. There is blood oozing from the surgical incision. Moderate tenderness to palpation of the periumbilical region. Musculoskeletal: No deformities. Integumentary: Appropriate color for ethnicity, warm, dry, no pallor or jaundice, no rash. Neurologic: Alert, answering questions appropriately, normal speech, no facial droop, moving all extremities well. Psychiatric: Appropriate mood and affect, normal thought process. Course - Vital Signs Text/Narrative:: Patient hemodynamically stable, afebrile, well-appearing, looks nontoxic. Differential diagnosis includes but is not limited to: Surgical site dehiscence, superficial wound separation, coagulopathy, hematoma, anemia, etc. Lab work shows a stable normocytic anemia, basely unchanged from discharge from same day surgery. Normal INR. Mild hypokalemia at 3.2. I did consult the on- call [employer] combination teacher Dr. Amber Archibald who evaluated the patient in the emergency department. She placed a pressure dressing and is not concerned about a serious amount of bleeding. After the pressure dressing was placed, bleeding seem to be controlled. Pain is also well controlled after oral Percocet. The patient did have some nausea and lightheadedness. We gave 1 L of lactated Ringer's and some IV Zofran and Reglan and she felt better after these therapies. She is able to ambulate without difficulty and I think she is okay to go home at this point. Her heart rate remained in the 80s and blood pressure was above 110 systolic when I evaluated her. Tolerating p.o. intake and looks nontoxic. Heart rate has consistently been in the 80s. She has prescription pain medication and Zofran available to her at the pharmacy, prescribed by her LEAVE MANAGER earlier today. Stable to discharge home with outpatient obstetrics follow-up. If bleeding or pain increase, patient is to return to the emergency department immediately. Instructions given to make dietary changes to address hypokalemia. Strict emergency department return precautions were provided, patient indicated understanding. All questions were answered prior to departure. Discharged in good condition. Last Recorded V/S: Last Vital Signs Temp 36.8 C 09/03/19 12:15 Pulse 81 09/03/19 12:15 Resp 18 09/03/19 12:15 BP 93/53 L 09/03/19 12:15 Pulse Ox 97 09/03/19 12:15 - Orders/Labs/Meds Orders: Active Orders 24 hr Category Date Time Status Saline Lock Insert [OM.PC] Stat Oth 09/03/19 07:06 Ordered Labs: Laboratory Tests 09/03/19 09/03/19 09/03/19 Range/Units 07:10 07:10 07:10 WBC 13.14 H (4.0-11.0) K/uL RBC 3.39 L (4.30-5.90) M/uL Hgb 9.7 L (12.0-16.0) g/dL Hct 28.7 L (36.0-46.0) % MCV 84.7 (80.0-98.0) fL MCH 28.6 (27.0-32.0) pg MCHC 33.8 (31.0-37.0) g/dL RDW Std Deviation 40.9 (28.0-62.0) fl RDW Coeff of [place] 13 (11.0-15.0) % Plt Count 168 (150-400) K/uL MPV 11.50 (7.40-12.00) fL Neut % (Auto) 93.7 H (48.0-80.0) % Lymph % (Auto) 4.4 L (16.0-40.0) % [place] % (Auto) 1.9 (0.0-15.0) % Eos % (Auto) 0.0 (0.0-7.0) % Baso % (Auto) 0.0 (0.0-1.5) % Neut # (Auto) 12.3 H (1.4-5.7) K/uL Lymph # (Auto) 0.6 (0.6-2.4) K/uL [place] # (Auto) 0.3 (0.0-0.8) K/uL Eos # (Auto) 0.0 (0.0-0.7) K/uL Baso # (Auto) 0.0 (0.0-0.1) K/uL Nucleated RBC % 0.0 /100WBC Nucleated RBCs # 0 K/uL INR 1.03 Sodium 137 (136-145) mmol/L Potassium 3.2 L (3.5-5.1) mmol/L Chloride 102 (98-107) mmol/L Carbon Dioxide 21.3 (21.0-32.0) mmol/L BUN 6 L (7.0-18.0) mg/dL Creatinine 1.0 (0.6-1.0) mg/dL Est Cr Clr Drug Dosing 59.97 mL/min Estimated GFR (MDRD) > 60.0 ml/min Glucose 197 H (74-106) mg/dL Calcium 8.0 L (8.5-10.1) mg/dL Meds: Medications Discontinued Medications Generic Name Dose Route Start Last Admin Trade Name Freq PRN Reason Stop Dose Admin Lactated Ringer's 1,000 mls @ 999 mls/hr 09/03/19 09:41 09/03/19 10:23 Ringers, Lactated IV 09/03/19 10:41 999 mls/hr .BOLUS ONE Administration Metoclopramide HCl 10 mg 09/03/19 11:20 09/03/19 11:37 Reglan IM 09/03/19 11:21 10 mg ONETIME ONE Administration Ondansetron HCl 8 mg 09/03/19 11:08 09/03/19 11:10 Zofran IM 09/03/19 11:09 Not Given ONETIME ONE Ondansetron HCl 8 mg 09/03/19 11:10 09/03/19 11:11 Zofran IVPUSH 09/03/19 11:11 8 mg ONETIME ONE Administration Ondansetron HCl Confirm 09/03/19 11:09 09/03/19 11:25 Zofran Administered 09/03/19 11:10 Not Given Dose 8 mg .ROUTE .STK-MED ONE Oxycodone/Acetaminophen 2 tab 09/03/19 08:06 09/03/19 08:15 Percocet 325-5 Mg PO 09/03/19 08:07 2 tab ONETIME ONE Administration Sodium Chloride 10 ml 09/03/19 07:06 Saline Flush FLUSH ASDIRECTED PRN Keep Vein Open Sodium Chloride 2.5 ml 09/03/19 07:06 Saline Flush FLUSH ASDIRECTED PRN Keep Vein Open Departure - Departure Time of Disposition: 09:29 Disposition: Home, Self-Care 01 Condition: Good Clinical Impression: Hypokalemia Post-operative complication Qualifiers: Surgical complication system/body Area: skin Surgical complication type: hematoma Procedure type: non-dermatologic Qualified Code(s): L76.32 - Postprocedural hematoma of skin and subcutaneous tissue following other procedure - Discharge Information *PRESCRIPTION DRUG MONITORING PROGRAM REVIEWED*: Not Applicable *COPY OF PRESCRIPTION DRUG MONITORING REPORT IN PATIENT KHOA: Not Applicable Instructions: Medical Screening Exam, Potassium Content of Foods Referrals: [facility] [Provider Group] - 1 Week (For routine follow-up.) Forms: ED Department Discharge Additional Instructions: Thank you for choosing the [facility] emergency department in [place] for your medical needs today. It was a pleasure caring for you. You were seen in the emergency department for postoperative bleeding. A new dressing was applied which seemed to control the bleeding. Your lab work looks okay. You should follow-up with your LEAVE MANAGER doctor in the next week or so or at your next scheduled appointment. Return to the emergency department immediately if the bleeding continues or if you develop swelling of the abdomen, severe pain, or any other concerns. Your blood potassium level is also low. We provide you with a handout about common foods that you can eat over the next week or so to help improve your potassium content. I would follow-up with your primary doctor the next 1 to 2 weeks to have your blood potassium level rechecked to ensure that is back to normal. Please return the emergency department immediately if your symptoms worsen or if you feel worse. The following information is given to patients seen in the emergency department who are being discharged. This information is to outline your options for follow-up care. We provide all patients seen in our emergency department with a follow-up referral. The need for follow-up, as well as the timing and circumstances, are variable depending upon the specifics of your emergency department visit. If you don't have a primary care physician on staff, we will provide you with a referral. We always advise you to contact your personal physician following an emergency department visit to inform them of the circumstance of the visit and for follow-up with them and/or the need for any referrals to a consulting specialist. The emergency department will also refer you to a specialist when appropriate. This referral assures that you have the opportunity for follow-up care with a specialist. All of these measure are taken in an effort to provide you with optimal care, which includes your follow-up. Under all circumstances we always encourage you to contact your private physician who remains a resource for coordinating your care. When calling for follow-up care, please make the office aware that this follow-up is from your recent emergency room visit. If for any reason you are refused follow-up, please contact the [facility] Emergency Department at and asked to speak to the emergency department charge nurse. If you do not have a primary care physician that is caring for you, you can contact these clinics below to set up an appointment to establish care: Nick Lyon [facility] - Primary Care [address] [place] [id number] [facility] [address] [place] [id number] Sepsis Event Note (ED) - Focused Exam Vital Signs: Vital Signs Temp Pulse Resp BP Pulse Ox 09/03/19 12:15 36.8 C 81 18 93/53 L 97 09/03/19 10:54 36.6 C 105 H 16 101/59 L 99 09/03/19 10:21 90/55 L 09/03/19 10:19 36.5 C 12 87/51 L 96 09/03/19 09:42 95 86/42 L 96 09/03/19 08:18 100 18 97/55 L 95 09/03/19 07:15 36.4 C 99 18 103/46 L 95 - My Orders Last 24 Hours: My Active Orders 09/03/19 07:06 Saline Lock Insert [OM.PC] Stat - Assessment/Plan Last 24 Hours: My Active Orders 09/03/19 07:06 Saline Lock Insert [OM.PC] Stat
[2019-09-03 07:32] LABS: BLOOD UREA NITROGEN,BUN 6 mg/dL (7.0-18.0); CARBON DIOXIDE,CO2 21.3 mmol/L (21.0-32.0); CHLORIDE,CL 102 mmol/L (98-107); GLUCOSE RANDOM 197 mg/dL (74-106); POTASSIUM,K 3.2 mmol/L (3.5-5.1); SODIUM,NA 137 mmol/L (136-145)
[2019-09-03] MEDS ORDERED: Acetaminophen/oxyCODONE 325-5 MG Tab PO ONE (08:06)
--- NOTE | 2019-09-03 08:33 | PCM.CONS ---
H&P History of Present Illness - General Date of Service: 09/03/19 Admit Problem/Dx: Bleeding from umbilical port incision Source of Information: Patient, Family, Provider History Limitations: Reports: Language Barrier - History of Present Illness Initial Comments - Free Text/Narative: Patient discharged home around 0500 this morning after laparoscopic salpingectomy for ectopic . Patient has had bleeding through the umbilical port dressing to her clothes. Patient also reports pain since surgery. Onset of Symptoms: Reports: Today, Gradual Location: Reports: Abdomen abdomen Pain Score (Numeric/FACES): 6 - Related Data Allergies/Adverse Reactions: Allergies Allergy/AdvReac Type Severity Reaction Status Date / Time No Known Allergies Allergy Verified 09/03/19 07:17 Home Medications: Home Meds Acetaminophen/oxyCODONE [Percocet 325-5 MG] 1 - 2 each PO Q6HR 3 Days #10 tab 09/02/19 [Rx] Ondansetron [Zofran ODT] 4 mg PO Q6H PRN 7 Days #20 tab.dis 09/03/19 [Rx] Past Medical History HEENT History: Reports: None Cardiovascular History: Reports: None Respiratory History: Reports: None Gastrointestinal History: Reports: None Genitourinary History: Reports: None BOWL TURNER History: Reports: , Other (See Below) Other OB/BYN History: Hysterectomy Musculoskeletal History: Reports: None Neurological History: Reports: None Psychiatric History: Reports: None Endocrine/Metabolic History: Reports: None Hematologic History: Reports: None Immunologic History: Reports: None Oncologic (Cancer) History: Reports: None Dermatologic History: Reports: None - Infectious Disease History Infectious Disease History: Reports: None - Past Surgical History Head Surgeries/Procedures: Reports: None HEENT Surgical History: Reports: None Cardiovascular Surgical History: Reports: None Female Surgical History: Reports: Tubal Ligation Endocrine Surgical History: Reports: None Neurological Surgical History: Reports: None Musculoskeletal Surgical History: Reports: None Social & Family History - Family History Family Medical History: Noncontributory - Tobacco Use Smoking Status *Q: Never Smoker Second Hand Smoke Exposure: No - Caffeine Use Caffeine Use: Reports: Coffee, Soda - Recreational Drug Use Recreational Drug Use: No H&P Review of Systems - Review of Systems: Review Of Systems: See Below General: Reports: No Symptoms HEENT: Reports: No Symptoms Pulmonary: Reports: No Symptoms Cardiovascular: Reports: No Symptoms Gastrointestinal: Reports: Abdominal Pain Genitourinary: Reports: No Symptoms Musculoskeletal: Reports: No Symptoms Skin: Reports: No Symptoms Psychiatric: Reports: No Symptoms Neurological: Reports: Dizziness (mild) Hematologic/Lymphatic: Reports: No Symptoms Immunologic: Reports: No Symptoms Exam - Exam Exam: See Below - Vital Signs Vital Signs: Last Vital Signs Temp 36.4 C 09/03/19 07:15 Pulse 99 09/03/19 07:15 Resp 18 09/03/19 07:15 BP 103/46 L 09/03/19 07:15 Pulse Ox 95 09/03/19 07:15 Weight: 45.359 kg - Exam General: Alert, Oriented, 4 HEENT: EOMI Neck: Supple Lungs: Normal Respiratory Effort GI/Abdominal Exam: Soft, No Distention, Tender (appropriate post-op tenderness to palpation) (Female) Exam: Deferred Rectal (Female) Exam: Deferred Back Exam: Normal Inspection Extremities: No Pedal Edema Skin: Other (umbilical port incision with soaked steri strips, slow oozing from incision) Neuro Extensive - Mental Status: Alert, Oriented x3 Neuro Extensive - Motor, Sensory, Reflexes: Normal Gait Psychiatric: Alert, Normal Affect, Normal Mood - Patient Data Lab Results Last 24 hrs: Laboratory Results - last 24 hr 09/03/19 09/03/19 09/03/19 Range/Units 07:10 07:10 07:10 WBC 13.14 H (4.0-11.0) K/uL RBC 3.39 L (4.30-5.90) M/uL Hgb 9.7 L (12.0-16.0) g/dL Hct 28.7 L (36.0-46.0) % MCV 84.7 (80.0-98.0) fL MCH 28.6 (27.0-32.0) pg MCHC 33.8 (31.0-37.0) g/dL RDW Std Deviation 40.9 (28.0-62.0) fl RDW Coeff of Dalton 13 (11.0-15.0) % Plt Count 168 (150-400) K/uL MPV 11.50 (7.40-12.00) fL Neut % (Auto) 93.7 H (48.0-80.0) % Lymph % (Auto) 4.4 L (16.0-40.0) % Jay % (Auto) 1.9 (0.0-15.0) % Eos % (Auto) 0.0 (0.0-7.0) % Baso % (Auto) 0.0 (0.0-1.5) % Neut # (Auto) 12.3 H (1.4-5.7) K/uL Lymph # (Auto) 0.6 (0.6-2.4) K/uL Jay # (Auto) 0.3 (0.0-0.8) K/uL Eos # (Auto) 0.0 (0.0-0.7) K/uL Baso # (Auto) 0.0 (0.0-0.1) K/uL Nucleated RBC % 0.0 /100WBC Nucleated RBCs # 0 K/uL INR 1.03 Sodium 137 (136-145) mmol/L Potassium 3.2 L (3.5-5.1) mmol/L Chloride 102 (98-107) mmol/L Carbon Dioxide 21.3 (21.0-32.0) mmol/L BUN 6 L (7.0-18.0) mg/dL Creatinine 1.0 (0.6-1.0) mg/dL Est Cr Clr Drug Dosing 59.97 mL/min Estimated GFR (MDRD) > 60.0 ml/min Glucose 197 H (74-106) mg/dL Calcium 8.0 L (8.5-10.1) mg/dL Result Diagrams: 09/03/19 07:10 09/03/19 07:10 Sepsis Event Note - Evaluation Sepsis Screening Result: No Definite Risk - Focused Exam Vital Signs: Vital Signs Temp Pulse Resp BP Pulse Ox 09/03/19 07:15 36.4 C 99 18 103/46 L 95 Date Exam was Performed: 09/03/19 Time Exam was Performed: 08:39 *Q Meaningful Use (ADM) - VTE *Q VTE Mechanical Contraindications *Q: Tx/Proc Refused byPt VTE Pharmacological Contraindications *Q: Tx/Proc Refused by Pt - VTE Risk Assess *Q Each Risk Factor Represents 1 Point: None Total Score 1 Point Risk Factors: 0 Each Risk Factor Represents 2 Points: None Total Score 2 Point Risk Factors: 0 Each Risk Factor Represents 3 Points: None Total Score 3 Point Risk Factors: 0 Each Risk Factor Represents 5 Points: None Total Score 5 Point Risk Factors: 0 Venous Thromboembolism Risk Factor Score *Q: 0 - Stroke *Q Aspirin Contraindications Stroke *Q: Other (Use Special Inst) (not indicated) Anticoagulation Contraindications Stroke *Q: Med/TX Not Indicated/Need Antithrombotic Contraindications Stroke *Q: Med/TX Not Indicated/Need Thrombolytic/Fibrinolytic Contraindications Stroke *Q: Med/TX Not Indicated/Need Statin Contraindications Stroke *Q: Med/TX Not Indicated/Need Rehabilitation Assessment Contraindication *Q: Med/tx not indicated/need - AMI *Q Aspirin Contraindications AMI *Q: Med/TX Not Indicated/Need Thrombolytic/Fibrinolytic Contraindications IV (AMI) *Q: Med/tx not indicated/need Statin Contraindications AMI *Q: Med/TX Not Indicated/Need Consult PN Assessment/Plan POD#: 0 (1) Bleeding SNOMED Code(s): 740607848 Code(s): R58 - HEMORRHAGE, NOT ELSEWHERE CLASSIFIED Current Visit: Yes Problem List Initiated/Reviewed/Updated: Yes Plan: Pressure dressing applied to incision. Slow oozing from incision. Hematoma possibly developing between skin and muscle, though with stable hemoglobin and vital signs, do not feel imaging or exploration indicated at this time. If bleeding continues, patient becomes symptomatic, or if any other concerns, will consider CT to evaluate for hematoma and/or exploration. All questions answered.
[2019-09-03] MEDS ORDERED: Lactated Ringers 1,000 ML IV ONE (09:41)
[2019-09-03] MEDS ORDERED: Ondansetron 4 MG/2 ML SDV IM ONE (11:08)
[2019-09-03] MEDS ORDERED: Ondansetron 4 MG/2 ML SDV ONE (11:09)
[2019-09-03] MEDS ORDERED: Ondansetron 4 MG/2 ML SDV IVPUSH ONE (11:10)
[2019-09-03] MEDS ORDERED: Metoclopramide 10 MG/2 ML SDV IM ONE (11:20)
== END 2019-09-03 12:35 | disposition home or self-care (01) ==
LOC: MW.ED 07:00
DX: L76.32 Postprocedural hematoma of skin and subcutaneous tissue following other procedure (principal); E87.6 Hypokalemia
CPT/HCPCS: 36415; 80048; 85025; 85610; 96361; 96372; 96374; 99285; A9270; J2405; J2765; J7120

== ENCOUNTER 2022-06-12 17:05 | Emergency (ER) | payer SELFPAY ==
[2022-06-12] MEDS ORDERED: Metoclopramide 10 MG/2 ML SDV IVPUSH ONE (17:44)
[2022-06-12] MEDS ORDERED: Morphine 4 MG/ML Syringe IVPUSH ONE (17:45)
[2022-06-12] MEDS ORDERED: Sodium Chloride 0.9% 500 ML IV SCH (18:15)
[2022-06-12 18:18] LABS: BLOOD UREA NITROGEN,BUN 11 mg/dL (7.0-18.0); CARBON DIOXIDE,CO2 23.4 mmol/L (21.0-32.0); CHLORIDE,CL 107 mmol/L (98-107); ESTIMATED GFR 102 mL/min (>60); GLUCOSE RANDOM 98 mg/dL (74-106); POTASSIUM,K 3.3 mmol/L (3.5-5.1); SODIUM,NA 143 mmol/L (136-145)
[2022-06-12] MEDS ORDERED: Iopamidol 755 Mg/ML 100 ML Bottle IVPUSH ONE (18:52)
== END 2022-06-12 20:28 | disposition left against medical advice (07) ==
LOC: MW.ED 17:05
DX: R51.9 Headache, unspecified (principal); R42 Dizziness and giddiness
CPT/HCPCS: 36415; 70450; 70496; 70498; 80053; 81001; 83605; 84484; 84703; 85025; 85610; 87040; 93005; 96361; 96374; 96375; 99284; J2270; J2765; J7040; Q9967; 93010

== ENCOUNTER 2023-04-21 17:40 | Emergency (ER) | payer SELFPAY ==
[2023-04-21] MEDS: Sodium Chloride 0.9% 1,000 ML IV ONE (18:38)
[2023-04-21 19:06] LABS: BASOPHILS ABSOLUTE AUTO 0.04 K/uL (0.00-0.20); BASOPHILS PERCENT AUTO 0.5 % (0.0-1.0); EOSINOPHILS ABSOLUTE AUTO 0.03 K/uL (0.00-0.45); EOSINOPHILS PERCENT AUTO 0.4 % (0.0-6.0); HEMATOCRIT 37.7 % (37.0-47.0); HEMOGLOBIN 13.1 g/dL (12.0-16.0); IMMATURE GRAN ABSOLUTE AUTO 0.02 K/uL (0.00-0.05); IMMATURE GRAN PERCENT AUTO 0.3 % (0.0-0.4); LYMPHOCYTES ABSOLUTE AUTO 2.74 K/uL (1.00-4.80); LYMPHOCYTES PERCENT AUTO 35.8 % (24.0-44.0); MEAN CORPUSCULAR HEMOGLOBIN 29.2 pg (28.0-32.0); MEAN CORPUSCULAR HGB CONC 34.7 g/dL (32.0-36.0); MEAN CORPUSCULAR VOLUME 84.2 fL (83.0-99.0); MONOCYTES ABSOLUTE AUTO 0.58 K/uL (0.00-0.80); MONOCYTES PERCENT AUTO 7.6 % (0.0-8.0); NEUTROPHILS ABSOLUTE AUTO 4.25 K/uL (1.80-7.70); NEUTROPHILS PERCENT AUTO 55.4 % (41.0-71.0); PLATELET COUNT,PLT 197 K/uL (150-400); RED BLOOD CELL COUNT 4.48 M/uL (4.10-5.30); WHITE BLOOD CELL COUNT,WBC 7.66 K/uL (3.9-11.3)
[2023-04-21 19:40] LABS: ALANINE AMINOTRANSFERASE,ALT 18 IU/L (14-63); ALBUMIN 3.9 g/dL (3.4-5.0); ALKALINE PHOSPHATASE 80 U/L (46-116); ASPARTATE AMNIOTRANSFERASE,AST 14 IU/L (15-37); BILIRUBIN TOTAL 1.4 mg/dL (0.2-1.0); BLOOD UREA NITROGEN,BUN 6 mg/dL (7.0-18.0); CALCIUM 9.1 mg/dL (8.5-10.1); CARBON DIOXIDE,CO2 25.2 mmol/L (21.0-32.0); CHLORIDE,CL 105 mmol/L (98-107); CREATININE 0.9 mg/dL (0.6-1.0); EST CRCL DRUG DOSING (CG) 71.34 mL/min; ESTIMATED GFR 88 mL/min (>60); GLUCOSE RANDOM 93 mg/dL (74-106); HCG QUANTITATIVE < 1.0 mIU/mL; POTASSIUM,K 3.4 mmol/L (3.5-5.1); SODIUM,NA 143 mmol/L (136-145)
[2023-04-21 20:17] LABS: CORONAVIRUS COVID-19 NAA NEGATIVE (NEGATIVE); INFLUENZA A NAA NEGATIVE (NEGATIVE); INFLUENZA B NAA NEGATIVE (NEGATIVE); RESPIRATORY SYNCYTIAL VIR NAA NEGATIVE (NEGATIVE)
[2023-04-21 21:20] LABS: APPEARANCE,URINE CLEAR; BILIRUBIN,URINE NEGATIVE (NEGATIVE); COLOR,URINE YELLOW; GLUCOSE,URINE NEGATIVE (NEGATIVE); KETONES,URINE NEGATIVE (NEGATIVE); LEUKOCYTE ESTERASE,URINE TRACE (NEGATIVE); NITRITE,URINE NEGATIVE (NEGATIVE); OCCULT BLOOD,URINE NEGATIVE (NEGATIVE); PH,URINE 6.5 (5.0-8.0); PROTEIN,URINE NEGATIVE (NEGATIVE); UROBILINOGEN,URINE 0.2 EU/dL (<2.0)
[2023-04-21 21:25] LABS: BACTERIA,URINE RARE (NEGATIVE); EPITHELIAL CELLS,URINE FEW (NONE-FEW); RBC,URINE 0-1 (0-2/HPF); WBC,URINE 0-1 (0-5/HPF)
== END 2023-04-21 21:57 | disposition home or self-care (01) ==
LOC: MW.ED 17:40
DX: N30.00 Acute cystitis without hematuria (principal); R51.9 Headache, unspecified
CPT/HCPCS: 0241U; 36415; 70450; 80053; 81001; 84702; 85025; 87086; 93005; 96360; 99284; J7030